=== PATIENT | female | born 1975 ===

== ENCOUNTER 2024-08-06 07:02 | Day surgery (SDC) | payer OTHER ==
[2024-07-31 11:15] VITALS: BP 119/82
[2024-07-31 11:45] LABS: BASO % 0.6 % (0.1-1.2); EOS # 0.18 (0.04-0.54); EOS % 3.7 % (0.7-7.0); HEMATOCRIT 41.7 % (34.1-44.9); HEMOGLOBIN 14.2 g/dL (11.2-15.7); LYMPH # 0.96 (1.18-3.74); LYMPH % 19.5 % (19.3-53.1); MEAN CORPUSCULAR HEMOGLOBIN 29.9 pg (25.6-32.2); MONO # 0.41 (0.24-0.82); MONO % 8.3 % (4.7-12.5); NEUT # 3.33 (1.56-6.13); NEUT % 67.7 % (34.0-71.1); PLATELET COUNT 187 K/uL (163-369); RED BLOOD COUNT 4.75 M/uL (3.93-5.22); RED CELL DISTRIBUTION WIDTH 11.5 % (11.6-14.4)
[2024-07-31 11:48] LABS: URINE APPEARANCE Clear; URINE BILIRRUBIN Negative (NEGATIVE); URINE BLOOD Negative; URINE COLOR Yellow; URINE GLUCOSE Negative (NEGATIVE); URINE KETONE Negative (NEGATIVE); URINE LEUKOCYTE Negative; URINE NITRATE Negative; URINE PROTEIN Negative (NEGATIVE); URINE UROBILINOGEN 0.2 E.U./dl
[2024-07-31 11:53] LABS: URINE BACTERIA 638.7 uL (0.0-1933); URINE EPITHELIAL CELLS 20.4 uL (0.0-38.8); URINE WBC 7.9 uL (0.0-23.2)
[2024-07-31 12:12] LABS: CALCIUM 9.5 mg/dL (8.5-10.1); CREATININE SERUM 0.9 mg/dL (0.55-1.02); GFR 66.55; INR 1.02; PARTIAL THROMBOPLASTIN TIME 28.1 SECONDS (22.0-34.0); POTASSIUM 4.37 mEq/L (3.5-5.1); PROTHROMBIN TIME 11.1 SECONDS (9.0-11.5)
[2024-07-31 12:55] LABS: URINE RBC 0.4 uL (0.0-20.8)
[~2024-08-06] VITALS: Ht 160 cm; Wt 63.0 kg
[~2024-08-06 07:02] MED LIST: PRAVASTATIN SOD20 MG PO
[2024-08-06] MEDS ORDERED: CEFAZOLIN SODIUM 1,000 MG VIAL ONE (08:32)
[2024-08-06] MEDS ORDERED: BUPIVACAINE HCL/Mpf 0.5% 10ML VIAL ONE (08:55)
[2024-08-06] MEDS ORDERED: LIDOCAINE HCL 1%/EPINEPHRINE 20ML VIAL IJ ONE (08:55)
[2024-08-06] MEDS ORDERED: TYLENOL ARTHRI650 MG PO (09:07)
[2024-08-06] MEDS ORDERED: KETO10TA2 PO (09:07)
[2024-08-06] MEDS ORDERED: NEURONTIN300 MG PO (09:07)
[2024-08-06] MEDS ORDERED: MIRALAX17 GM PO (09:07)
[2024-08-06] MEDS ORDERED: TRAMADOL HCL50 MG PO (09:07)
[2024-08-06] MEDS ORDERED: LIDOCAINE HCL 1% 20 ML VIAL IJ ONE (11:00)
[2024-08-06] MEDS ORDERED: MORPHINE SULFATE 4 MG/ML VIAL IV ONE (12:40)
== END 2024-08-06 14:30 | disposition home or self-care (01) ==
LOC: CIR.AMB 07:02
PROVIDERS: ATTEND Surgery
DX: K42.0 Umbilical hernia with obstruction, without gangrene (principal)
CPT/HCPCS: 49594; C1781